=== PATIENT | male | born 1970 | race Caucasian/White ===

== ENCOUNTER 2018-10-03 17:23 | Emergency (ER) | payer SELFPAY ==
[~2018-10-03] VITALS: Ht 182.9 cm; Wt 77.1 kg
[2018-10-03] MEDS ORDERED: cefTRIAXone 1,000 MG/2.86 ml vial (IM ONLY) ONE (17:51)
--- NOTE | 2018-10-03 17:55 | ED Integumentary General ---
General Chief Complaint: Skin/Wound Problems Stated Complaint: LT HAND INFECTION Source: patient Exam Limitations: no limitations History of Present Illness Date Seen by Provider: October 03, 2018 Time Seen by Provider: 17:53 Initial Comments This 48-year-old male presents with an infection to his left index finger. Patient is constantly scraping his fingers in his work. He's had multiple similar but less significant episodes in the past. Yesterday the patient noted onset of redness and swelling over the abrasion located over the metacarpal phalangeal joint of his nondominant left index over its dorsal aspect. The patient experienced increasing redness and swelling with ascending lymphedema. Patient was able to express small amount of purulent material. Patient was referred for evaluation from urgent care. The patient is allergic penicillin. Allergies and Home Medications Allergies Uncoded Allergies: PENICILLIN (Adverse Reaction, Unknown, 10/03/18) Patient Home Medication List Home Medication List Reviewed: Yes Review of Systems Review of Systems Constitutional: No chills, No fever EENTM: no symptoms reported Respiratory: No cough Cardiovascular: No chest pain Gastrointestinal: No abdominal pain, No nausea, No vomiting Genitourinary: No decreased output Musculoskeletal: No back pain Skin: see HPI, lesions (there is an area of cellulitis located over the dorsum of the left index finger at the metacarpal phalangeal joint that measures approximately 2 cm in diameter. There is ascending lymphedema above the elbow.) Psychiatric/Neurological: No Symptoms Reported Endocrine: No Symptoms Reported Hematologic/Lymphatic: No Symptoms Reported Past Tpwiblj-Ggppje-Lsjeac Hx Past Med/Social Hx: Reviewed Nursing Past Med/Soc Hx Patient Social History Alcohol Use: Denies Use Recreational Drug Use: No Smoking Status: Current Everyday Smoker Type Used: Cigarettes 2nd Hand Smoke Exposure: Yes Recent Foreign Travel: No Contact w/Someone Who Travel: No Recent Hopitalizations: No Physical Abuse: No Sexual Abuse: No Fear: No Immunizations Up To Date Tetanus Booster (TDap): More than 5yrs Seasonal Allergies Seasonal Allergies: No Past Medical History Surgeries: No Respiratory: No Cardiac: No Neurological: No Genitourinary: No Gastrointestinal: No Musculoskeletal: Yes (arm fx) Fractures Endocrine: No HEENT: No Cancer: No Psychosocial: No Integumentary: No Blood Disorders: No Physical Exam Vital Signs Capillary Refill : General Appearance: WD/WN, no apparent distress HEENT: normal ENT inspection Neck: normal inspection Cardiovascular: regular rate, rhythm Respiratory: lungs clear Gastrointestinal: normal bowel sounds Back: normal inspection Extremities: normal range of motion Neurologic/Psychiatric: no motor/sensory deficits, alert, normal mood/affect Skin: normal color, warm/dry, other (2 cm diameter area of cellulitis to the metacarpal phalangeal joint dorsal aspect left index finger with ascending lymphedema) Progress/Results/Core Measures Results/Orders My Orders Orders - JANET VERGARA MD Wound Culture (10/03/18 17:47) Dipht,Pertuss(Acell),Tet Adult (Boostrix (10/03/18 18:00) Ceftriaxone For Im Use (Rocephin For Im (10/04/18 09:00) Progress Progress Note : Time: 17:56 Progress Note The patient had a culture obtained of the cellulitis over the dorsum of the left index finger. Patient received a gram of Rocephin IM. He was observed for any adverse reaction. Next Patient received a TD. Instructions were offered to the patient soak the hand in warm soapy water or Epsom salts. He was placed on Bactrim DS twice a day for 10 days. He was asked return if any problems or questions. Departure Impression Primary Impression: Cellulitis Qualified Codes: L03.012 - Cellulitis of left finger Disposition: 01 HOME, SELF-CARE Condition: Improved Departure-Patient Inst. Decision time for Depature: 17:58 Referrals: NO,LOCAL PHYSICIAN (PCP) Primary Care Physician Patient Instructions: Cellulitis (Skin Infection), Adult (DC) Add. Discharge Instructions: Bactrim DS as prescribed. Warm soaks and hot water with soap or Epsom salts. Return if any problems or questions. All discharge instructions reviewed with patient and/or family. Voiced understanding. Scripts Sulfamethoxazole/Trimethoprim (Bactrim Ds Tablet) 1 Each Tablet 1 EACH PO BID for 10 Days, TAB Prov: JANET VERGARA MD 10/03/18 JANET VERGARA MD October 03, 2018 17:55
[2018-10-03] MEDS ORDERED: LIDOCAINE 1% INJ 20 ML 20 ML VIAL INJ ONE (18:00)
[2018-10-03] MEDS ORDERED: TETANUS,DIPTH,PERTUSS P/F (BOOSTRIX) 0.5 ML VIAL IM ONE (18:00)
[2018-10-03] MEDS ORDERED: SULF1TAB35 PO (18:00)
[2018-10-03 18:20] VITALS: BP 132/89
[2018-10-04] MEDS ORDERED: cefTRIAXone 1,000 MG/2.86 ml vial (IM ONLY) IM SCH (09:00)
== END 2018-10-03 18:20 | disposition home or self-care (01) ==
LOC: ER FS 17:25
DX: L03.012 Cellulitis of left finger (principal); Z23 Encounter for immunization
CPT/HCPCS: 87070; 87077; 87205; 90471; 90715; 96372; 99284